=== PATIENT | male | born 1990 | race Caucasian/White ===

== ENCOUNTER 2017-07-17 19:01 | Emergency (ER) | payer OTHER ==
[2017-07-17 20:07] LABS: #Basophils 0.1 thou/uL (0.0-0.2); #Eosinphils 0.1 thou/uL (0.0-0.7); #Lymphocytes 1.6 thou/uL (1.20-3.40); #Monocytes 0.4 thou/uL (0.11-0.59); #Neutrophils 6.8 thou/uL (1.40-6.50); %Basophils 0.7 % (0.0-1.0); %Lymphocytes 18.2 % (21.0-51.0); %Monocytes 4.3 % (0.0-10.0); %Neutrophils 75.7 % (42.0-75.0); Hemoglobin 16.4 g/dL (14.0-18.0); Mean Corpuscular HGB CONC 36.6 g/dL (32.0-36.0); Mean Corpuscular Hemoglobin 32.3 pg (27.0-31.0); Mean Corpuscular Volume 88.3 fl (80.0-94.0); Platelet Count 222 thou/uL (130-400); RBC Distribution Width 12.6 % (11.5-14.5); Red Blood Cell (RBC) Count 5.09 mill/uL (4.70-6.10)
--- NOTE | 2017-07-17 20:09 | RAD ---
SUPINE PORTABLE CHEST: HISTORY: Seizure with fall. FINDINGS: The lungs are clear. No evidence of infiltrate. Deformity of the right clavicle from old fracture i s again noted, unchanged from exam of 12/03/2014. IMPRESSION: No acute chest abnormality identified. POS: [facility]
--- NOTE | 2017-07-17 20:16 | RAD ---
PORTABLE AP PELVIS: INDICATIONS: Seizure with fall. Injury to pelvis. FINDINGS: There is abnormal opacity in the region of the lesser trochanter of the proximal right femur. Some o f this may be extraneous artifact; however, I cannot exclude a fracture at this location. There is also abnormal density involving the ischium, at the acetabulum, on the right. Recommend ded icated right hip views to better evaluate the right hemipelvis and the proximal right femur. CODE T POS: [facility]
--- NOTE | 2017-07-17 20:17 | RAD ---
RIGHT SHOULDER THREE VIEWS: INDICATIONS: Seizure with fall and injury to right shoulder. FINDINGS: Deformity of the right clavicle from old fracture is stable when compared to films dating to 2015. A C joint is normally aligned. Humeral head is normally positioned. No evidence of acute fracture or dislocation. POS: [facility]
[2017-07-17 20:23] LABS: ALT (SGPT) 17 U/L (8-55); AST (SGOT) 15 U/L (5-34); Albumin 4.4 g/dL (3.5-5.0); Alkaline Phosphatase 65 U/L (40-150); Anion Gap 16 mmol/L (10-20); BUN (Urea Nitrogen) 14 mg/dL (8.9-20.6); Bilirubin, Total 0.4 mg/dL (0.2-1.2); Calc. Creatinine Clearance 0 mL/min (70-130); Calcium 9.7 mg/dL (7.8-10.44); Carbamazepine-Tegretol Less than 1.9 ug/mL (4.0-12.0); Carbon Dioxide 22 mmol/L (22-29); Chloride 104 mmol/L (98-107); Estimated GFR-MDRD 86; Globulin 2.6 g/dL (2.4-3.5); Glucose 86 mg/dL (70-105); Potassium 3.2 mmol/L (3.5-5.1); Sodium 139 mmol/L (136-145); Valproic Acid (Depakene) Less than 12.5 ug/mL (50.0-100.0)
--- NOTE | 2017-07-17 21:04 | CT ---
CT HEAD WITHOUT CONTRAST: INDICATIONS: Seizure with fall and injury to head. COMPARISON: Head CT of 10/03/2016. TECHNIQUE: Multiple axial tomograms obtained through the head without IV enhancement. FINDINGS: Post craniotomy changes seen in the right frontal bone and temporal bone. There is volume loss in th e right temporal lobe, consistent with prior craniotomy change. There is also encephalomalacia in th e right frontal lobe, which is stable, possibly the result of prior surgery or infarct. There is volume loss in the left frontal lobe, which appears stable. There is focal volume loss in the left occipital lobe, consistent with old infarct, which is stable. There is no evidence of intracranial hemorrhage. No acute infarct or mass seen. IMPRESSION: Stable findings when compared to prior exam. No acute process. POS: [facility]
--- NOTE | 2017-07-17 21:05 | CT ---
CT CERVICAL SPINE: INDICATIONS: Fall with injury to neck. TECHNIQUE: Multiple axial tomograms obtained through the cervical spine with multiplanar reconstruction. FINDINGS: Cervical vertebrae maintain normal height and alignment. No evidence of fracture identified. IMPRESSION: No evidence of cervical spine fracture. POS: [facility]
[2017-07-17 23:08] LABS: Amphetamine Not Detected (NotDetected); Barbiturates Screen Not Detected (NotDetected); Benzodiazepine Screen Not Detected (NotDetected); Cocaine Metabolite Screen Not Detected (NotDetected); Medtox Control Line Valid? VALID (VALID); Medtox Reader # READER 1; Methadone Not Detected (NotDetected); Methamphetamine Not Detected (NotDetected); Opiate Screen Not Detected (NotDetected); Oxycodone Screen Not Detected (NotDetected); Phencyclidine (PCP) Not Detected (NotDetected); THC/Cannabinoid Screen Not Detected (NotDetected); Tricyclic Screen Not Detected (NotDetected)
== END 2017-07-18 00:09 | disposition home or self-care (01) ==
LOC: ERS 19:01
DX: G40.909 Epilepsy, unspecified, not intractable, without status epilepticus (principal); S00.81XA Abrasion of other part of head, initial encounter; S40.811A Abrasion of right upper arm, initial encounter; F31.9 Bipolar disorder, unspecified; F90.9 Attention-deficit hyperactivity disorder, unspecified type; F17.210 Nicotine dependence, cigarettes, uncomplicated; W19.XXXA Unspecified fall, initial encounter
CPT/HCPCS: 36415; 70450; 71045; 72125; 72170; 80053; 80156; 80164; 80185; 80306; 84146; 85025

== ENCOUNTER 2018-01-06 23:02 | Inpatient (IN) | payer OTHER ==
[2018-01-06 23:42] LABS: #Basophils 0.1 thou/uL (0.0-0.2); #Eosinphils 0.1 thou/uL (0.0-0.7); #Lymphocytes 1.4 thou/uL (1.20-3.40); #Monocytes 0.5 thou/uL (0.11-0.59); #Neutrophils 6.2 thou/uL (1.40-6.50); %Basophils 1.1 % (0.0-1.0); %Eosinophils 0.9 % (0.0-10.0); %Monocytes 5.5 % (0.0-10.0); %Neutrophils 75.5 % (42.0-75.0); Hemoglobin 16.1 g/dL (14.0-18.0); Mean Corpuscular Hemoglobin 31.5 pg (27.0-31.0); Mean Corpuscular Volume 87.4 fL (78.0-98.0); Mean Platelet Volume 6.5 fL (7.4-10.4); Platelet Count 255 thou/uL (130-400); RBC Distribution Width 11.5 % (11.5-14.5); Red Blood Cell (RBC) Count 5.12 mill/uL (4.70-6.10); White Blood Cell (WBC) Count 8.2 thou/uL (4.8-10.8)
[2018-01-06] MEDS ORDERED: Lorazepam 2 MG/ML VIAL ONE (23:42)
[2018-01-06 23:59] LABS: Carbamazepine-Tegretol Less than 1.9 ug/mL (4.0-12.0)
--- NOTE | 2018-01-06 23:59 | CT ---
CT OF THE BRAIN WITHOUT CONTRAST 01/06/18 COMPARISON: 8 HISTORY: Seizure at home. Altered mental status. TECHNIQUE: Multiple contiguous axial images were obtained in a CT of the brain without contrast. FINDINGS: There is stable areas of encephalomalacia in the bilateral frontal lobe and left occipital lobe. Ther e no evidence of hydrocephalus, intracranial hemorrhage or extra-axial fluid collection. Postsurgical changes are seen in the right frontal calvarium. The paranasal sinuses and mastoid air c ells are well aerated. IMPRESSION: Chronic intracranial findings without acute intracranial abnormality. POS: [facility]
[2018-01-07] LABS: ALT (SGPT) 14 U/L (8-55); AST (SGOT) 16 U/L (5-34); Acetaminophen Less than 6.0 mcg/mL (10.0-30.0); Alcohol Less than 10 mg/dL (Less than 10); Alkaline Phosphatase 57 U/L (40-150); Anion Gap 16 mmol/L (10-20); BUN (Urea Nitrogen) 7 mg/dL (8.9-20.6); Bilirubin, Total 0.3 mg/dL (0.2-1.2); CK (CPK) 233 U/L (30-200); Calc. Creatinine Clearance 0 mL/min (70-130); Calcium 8.9 mg/dL (7.8-10.44); Carbon Dioxide 17 mmol/L (22-29); Chloride 94 mmol/L (98-107); Estimated GFR-MDRD Greater than 90; Globulin 2.4 g/dL (2.4-3.5); Glucose 104 mg/dL (70-105); Potassium 3.4 mmol/L (3.5-5.1); Protein, Total 6.4 g/dL (6.0-8.3); Salicylate Less than 8.0 mg/dL (15.0-30.0); Sodium 124 mmol/L (136-145)
--- NOTE | 2018-01-07 00:01 | RAD ---
SINGLE VIEW OF THE CHEST: 01/06/18 COMPARISON: None. HISTORY: Seizures. Nausea and vomiting. FINDINGS: Single view of the chest shows a normal sized cardiomediastinal silhouette. There is no evidence of c onsolidation, mass, or pleural effusion. The bones are unremarkable. IMPRESSION: No evidence of acute cardiopulmonary disease. POS: [facility]
[2018-01-07 00:19] LABS: CKMB 3.8 ng/mL (0-6.6); Troponin I Less than 0.010 ng/mL (< 0.028)
--- NOTE | 2018-01-07 00:41 | PDOC.FPRHP ---
- History of Present Illness Chief Complaint: Seizure History of Present Illness: Patient brought to ED after having a seizure while sleeping at home. History obtained from mother and step-father. Pt has history of seizures for past 4 years after TBI. Seizure lasted ~10 min, associated with bladder incontinence, some "milky, blood mucus" vomit. Typical seizure is when eyes roll back, face turns blue. This seizure was similar in quality but longer in duration compared to normal (2-3 min). Mother reports he stopped breathing and she started chest compressions. Patient was post ictal, but when he recovered became agitated and was given ativan in ED. Patient somnolent at time of exam. Pt drinks 2-3 bottles water/day. Did not miss any doses of medications. Seizures occur every few weeks-couple months. Dr. Murillo is neurologist. ED Course: ativan - Allergies/Adverse Reactions Allergies Allergy/AdvReac Type Severity Reaction Status Date / Time No Known Allergies Allergy Verified 01/07/18 01:44 - Home Medications Medication Instructions Recorded Confirmed Type FLUoxetine HCl 10 mg PO DAILY 10/03/16 01/07/18 History Lacosamide [Vimpat] 200 mg PO BID 10/03/16 01/07/18 History Pravastatin Sodium 40 mg PO HS 10/03/16 01/07/18 History QUEtiapine Fumarate [Seroquel Xr] 300 mg PO HS 10/03/16 10/03/16 History Acetaminophen [Tylenol Regular 650 mg PO Q4H PRN tab 10/05/16 Rx Strength] Atorvastatin Calcium [Lipitor] 10 mg PO HS tab 10/05/16 Rx Docusate [Colace] 100 mg PO BID cap 10/05/16 Rx Famotidine [Pepcid] 20 mg PO BID tab 10/05/16 Rx Ondansetron [Zofran ODT] 4 mg PO Q6H PRN tab 10/05/16 Rx Triamterene/Hydrochlorothiazid 1 cap PO DAILY cap 10/05/16 01/07/18 Rx [Dyazide] Acetaminophen W/ Codeine 1 tab PO Q6H PRN 01/07/18 History [Acetaminophen/Codeine #3] OXcarbazepine [Trileptal] 150 mg PO BID 01/07/18 01/07/18 History lamoTRIgine 25 mg PO BID 01/07/18 01/07/18 History - History PMHx: TBI 4 years ago, in coma 1 month, Stroke with residual L sided weakness, schizoprenia PSHx: previous trach, brain surgery FHx: None Social: Lives iwth mom and stepdad. Smoked 5 cigs daily. No alcohol or drug use. - Review of Systems ROS unobtainable: due to mental status - Vital signs BP: 118/98 HR: 93 RR: 18 Tmax: 98.2 Pox: 100% on RA Wt: 102 kg - Physical Exam Constitutional: other (sleeping, responds to stimuli, follows commands) HEENT: normocephalic and atraumatic, grossly normal hearing Neck: other (scar from previous trach) Heart: RRR, normal S1/S2, no murmurs/rubs/gallops Lungs: CTAB, no respiratory distress Abdomen: soft, bowel sounds present, no masses/distention Musculoskeletal: normal structure, normal tone Neurological: no focal deficit Skin: no rash/lesions, capillary refill <2 seconds FMR H&P: Results - Labs Result Diagrams: 01/06/18 23:29 01/07/18 08:33 Lab results: WBC 8.2 thou/uL (4.8-10.8) 01/06/18 23:29 Hgb 16.1 g/dL (14.0-18.0) 01/06/18 23:29 Hct 44.7 % (42.0-52.0) 01/06/18 23:29 MCV 87.4 fL (78.0-98.0) 01/06/18 23:29 Plt Count 255 thou/uL (130-400) 01/06/18 23:29 Neutrophils % 75.5 % (42.0-75.0) H 01/06/18 23:29 Sodium 124 mmol/L (136-145) L 01/06/18 23:29 Potassium 3.4 mmol/L (3.5-5.1) L 01/06/18 23:29 Chloride 94 mmol/L (98-107) L 01/06/18 23:29 Carbon Dioxide 17 mmol/L (22-29) L 01/06/18 23:29 BUN 7 mg/dL (8.9-20.6) L 01/06/18 23:29 Creatinine 0.86 mg/dL (0.6-1.3) 01/06/18 23:29 Glucose 104 mg/dL (70-105) 01/06/18 23:29 Calcium 8.9 mg/dL (7.8-10.44) 01/06/18 23:29 Total Bilirubin 0.3 mg/dL (0.2-1.2) 01/06/18 23:29 AST 16 U/L (5-34) 01/06/18 23:29 ALT 14 U/L (8-55) 01/06/18 23:29 Alkaline Phosphatase 57 U/L (40-150) 01/06/18 23:29 Creatine Kinase 233 U/L (30-200) H 01/06/18 23:29 CK-MB (CK-2) 3.8 ng/mL (0-6.6) 01/06/18 23:29 Serum Total Protein 6.4 g/dL (6.0-8.3) 01/06/18 23:29 Albumin 4.0 g/dL (3.5-5.0) 01/06/18 23:29 Lipase 25 U/L (8-78) 01/06/18 23:29 FMR H&P: A/P - Problem List (1) Hyponatremia Current Visit: Yes Status: Acute Code(s): E87.1 - HYPO-OSMOLALITY AND HYPONATREMIA (2) Seizure Current Visit: Yes Status: Acute Code(s): R56.9 - UNSPECIFIED CONVULSIONS (3) Elevated CK Current Visit: Yes Status: Acute (4) Schizophrenia Current Visit: Yes Status: Chronic Code(s): F20.9 - SCHIZOPHRENIA, UNSPECIFIED (5) TBI (traumatic brain injury) Current Visit: Yes Status: Chronic Code(s): S06.9X9A - UNSP INTRACRANIAL INJURY W LOC OF UNSP DURATION, INIT - Plan 27 yo M with PMH TBI and seizures admitted after seizure for hyponatremia Hypotonic Hyponatremia - Na+ 124 on admission - Follow BMP q6h, goal to increase Na+ no more than 8 in 24 hrs - ddx includes medication (oxcarbazapine) induced vs SIADH vs polydipsia vs cerebral salt wasting - pending urine sodium, Uosm, uric acid, cortisol, TSH to further delineate between these. Patient appears euvolemic. - s/p 1L NS in ED - Currently NPO, after passing bedside swallow will start fluid restriction Seizure - oxcarbazapine supratherapeutic. Per pharmacy recs, plan to hold for 24 hrs after last dose then will at that time will recheck level or restart med pending clinical course - Consult neurology in am as this seizure was longer than usual for pt - continue home meds pending med rec in am - seizure precautions, neuro checks - drug screen negative - Brain CT: no acute intracranial abnormalities, chronic changes Elevated CK - 256, 2/2 to above Hx of schizoprenia - will continue home meds pending med rec Diet: NPO, will transition to regular diet after bedside swallow DVT Ppx: SCDs Dispo: admit to telemetry FMR H&P: Upper Level - Pertinent history 27 y/o M w/ PMHx of traumatic brain injury w/ seizure d/o seen by Dr. Murillo of neurology presents to the ER for evaluation of seizure which occured earlier tonight. Mother, who is MPOA, reports patient experiencing his usual generalized tonic seizure earlier tonight while asleep. Reports seizure lasted 10 minutes which is longer than his usual 2-3 min. seizure duration. Also, reports seizures do not normally happen when patient asleep. Denies any tongue biting, hitting head. Pt combative during post-ictal state and received ativan in the ER which calmed him down for imaging. Pt started on lamictal by Dr. Paulino approx 1 month ago per mother, but patient has otherwise been on his usual medication regimen. No other changes noted. Mother reports patient does drink a 3-4 16 oz bottles of water a day. Has not had issues with his sodium in the past. - Pertinent findings Na - 124 Serum Osm - 256 Urine Osm - 443 Urine Na - 142 Imaging and vitals per landscape maintenance internship note GEN: Resting in bed, NAD. HEENT: Normocephalic, atraumatic PULM: CTA-B/l CARDS: RRR, no murmur GI: Soft, non-ttp, BSx4 Neuro: Patient follows commands intermittently. Very sleepy after ativan administration. - Plan Date/Time: 01/07/18 0041 Samson Hendrickson MD, have evaluated this patient and agree with findings/plan as outlined by landscape maintenance internship resident. Pertinent changes/additions are listed here. 27 y/o M w/: 1) Moderate Hyponatremia (SIADH vs Cerebral Salt Wasting vs Glucocorticoid Deficiency vs medication induced) - Pt w/ hx of traumatic brain injury now w/ hyponatremia and significantly elevated urine Na and Osm - Will check uric acid to further help differentiate etiology w/ low serum uric acid pointing more toward SIADH - Patient to be fluid restricted as currently does not show evidence of being volume down which points more toward possible SIADH instead of CAMPAIGN MANAGER. No evidence of SAH noted on neuroimaging - Will check q4-6 hr BMP's to monitor sodium w/ goal sodium rise of 8 mEq or less over 24 hours - Will check AM cortisol and TSH to eval for possible glucocorticoid deficiency or severe hypothyroidism as causes - Trileptal is another possible cause of his low Na being supratherapuetic at 51. Will hold his AM dose tomorrow and repeat a level at trough immediately before his night-time dose. Pt already being fluid restricted for likely SIADH. - Will consider consulting nephrology if etiology is still unclear or patient not improving w/ these measures 2) Seizure d/o w/ supratherapeutic oxcarbazepine level - Will continue w/ current home anti-seizure med regimen and plan to consult neuro in the AM for futher eval 2/2 prolonged duration of seizure and supratherapeutic oxcarbazepine level - Will hold his AM dose tomorrow and repeat a level at trough immediately before his night-time dose. - Neuro checks q4 hours - Seizure precautions - No acute findings on neuro-imaging Admit: Tele/Inpt Ppx: Lovenox Code Status: Full code on discussion w/ MPOA Assessment and Plan discussed w/ Dr. Stevenson who is in agreement Attending Addendum - Attending Addendum Date/Time: 01/07/18705 I personally evaluated the patient and discussed the management with Dr. Vallejo. I agree with the History, Examination, Assessment and Plan documented above with any addition or exceptions noted below. The patient was admitted overnight and is in the imcu as tele overflow, not IMCU. He had a seizure at home that lasted longer than normal. He was found to be hyponatremic. Hyponatremia could be due to siadh or medication induced. Checking urine studies. Sodium is slowly improving with fluid restriction. Will likely also discuss with pt's neurologist Dr. Murillo on Monday regarding his seizure meds.
[2018-01-07 00:44] LABS: Amphetamine Not Detected (NotDetected); Barbiturates Screen Not Detected (NotDetected); Benzodiazepine Screen Not Detected (NotDetected); Cocaine Metabolite Screen Not Detected (NotDetected); Medtox Control Line Valid? VALID (VALID); Medtox Reader # READER 4; Methadone Not Detected (NotDetected); Methamphetamine Not Detected (NotDetected); Opiate Screen Not Detected (NotDetected); Oxycodone Screen Not Detected (NotDetected); Phencyclidine (PCP) Not Detected (NotDetected); THC/Cannabinoid Screen Not Detected (NotDetected); Tricyclic Screen Not Detected (NotDetected)
[2018-01-07 00:59] LABS: Osmolality, Urine 443 mOsm/kg (300-900); Sodium, Urine 142 mmol/L (Not Available)
[2018-01-07 01:50] VITALS: BMI 29.7
[2018-01-07] MEDS ORDERED: Ondansetron ODT 4 MG TAB PO PRN (02:29)
[2018-01-07] MEDS ORDERED: Lorazepam 2 MG/ML VIAL SLOW IVP PRN (02:29)
[2018-01-07 04:54] LABS: Anion Gap 11 mmol/L (10-20); BUN (Urea Nitrogen) 6 mg/dL (8.9-20.6); Calc. Creatinine Clearance 213 mL/min (70-130); Calcium 8.7 mg/dL (7.8-10.44); Carbon Dioxide 20 mmol/L (22-29); Chloride 100 mmol/L (98-107); Estimated GFR-MDRD Greater than 90; Glucose 93 mg/dL (70-105); Potassium 3.7 mmol/L (3.5-5.1); Sodium 127 mmol/L (136-145)
[2018-01-07] MEDS: Nicotine 21 MG PATCH TD SCH (06:20)
[2018-01-07 09:23] LABS: Anion Gap 12 mmol/L (10-20); BUN (Urea Nitrogen) 6 mg/dL (8.9-20.6); Calc. Creatinine Clearance 194 mL/min (70-130); Calcium 9.3 mg/dL (7.8-10.44); Carbon Dioxide 22 mmol/L (22-29); Chloride 105 mmol/L (98-107); Estimated GFR-MDRD Greater than 90; Glucose 91 mg/dL (70-105); Potassium 4.3 mmol/L (3.5-5.1); Sodium 135 mmol/L (136-145)
[2018-01-07] MEDS: OXcarbazepine 150 MG TAB PO SCH ×2 (09:40→20:25)
[2018-01-07] MEDS: lamoTRIgine 25 MG TAB PO SCH ×2 (09:41→20:25)
[2018-01-07] MEDS: Lacosamide 50 mg Tablet PO SCH ×2 (10:51→20:25)
[2018-01-07 16:45] LABS: Anion Gap 11 mmol/L (10-20); BUN (Urea Nitrogen) 7 mg/dL (8.9-20.6); Calc. Creatinine Clearance 162 mL/min (70-130); Calcium 9.4 mg/dL (7.8-10.44); Carbon Dioxide 20 mmol/L (22-29); Chloride 108 mmol/L (98-107); Estimated GFR-MDRD Greater than 90; Glucose 116 mg/dL (70-105); Potassium 4.2 mmol/L (3.5-5.1); Sodium 135 mmol/L (136-145)
[2018-01-07] MEDS: Acetaminophen 325 MG TAB PO PRN (17:15)
[2018-01-07] MEDS ORDERED: OXcarbazepine 150 MG TAB PO SCH (21:00)
[2018-01-07] MEDS ORDERED: Pravastatin Sodium 40 MG TAB PO SCH (21:00)
[2018-01-07 22:27] LABS: Anion Gap 13 mmol/L (10-20); BUN (Urea Nitrogen) 8 mg/dL (8.9-20.6); Calc. Creatinine Clearance 171 mL/min (70-130); Calcium 9.5 mg/dL (7.8-10.44); Carbon Dioxide 23 mmol/L (22-29); Chloride 107 mmol/L (98-107); Estimated GFR-MDRD Greater than 90; Glucose 90 mg/dL (70-105); Potassium 3.8 mmol/L (3.5-5.1); Sodium 139 mmol/L (136-145)
--- NOTE | 2018-01-08 05:23 | PDOC.FM ---
- Subjective Subjective: Pt is doing well this morning. He reports right sided upper extremity weakness but states that happens every morning. He denies headache, shortness of breath, or chest pain. - Objective MAR Reviewed: Yes Vital Signs & Weight: Vital Signs (12 hours) Temp Pulse Resp BP Pulse Ox 01/08/18 03:45 97.8 F 67 20 101/51 L 98 01/08/18 00:00 97.8 F 90 18 93/61 98 01/07/18 19:36 97.9 F 89 20 123/68 97 Weight Weight 102.058 kg I&O: 01/06/18 01/07/18 01/08/18 06:59 06:59 06:59 Intake Total 1680 Output Total 8159 6086 Balance -5150 -9170 Result Diagrams: 01/06/18 23:29 01/08/18 04:49 Phys Exam - Physical Examination Constitutional: NAD HEENT: moist MMs Neck: no JVD Respiratory: no wheezing, clear to auscultation bilateral Cardiovascular: RRR, no significant murmur Gastrointestinal: soft, non-tender, no distention, positive bowel sounds Musculoskeletal: no edema, pulses present Neurological: non-focal, normal sensation, moves all 4 limbs Pt. has equal strength in upper and lower extermities Psychiatric: normal affect, A&O x 3 Skin: cap refill <2 seconds Dx/Plan (1) Hyponatremia Code(s): E87.1 - HYPO-OSMOLALITY AND HYPONATREMIA Status: Acute (2) Seizure Code(s): R56.9 - UNSPECIFIED CONVULSIONS Status: Acute (3) Schizophrenia Code(s): F20.9 - SCHIZOPHRENIA, UNSPECIFIED Status: Chronic (4) TBI (traumatic brain injury) Code(s): S06.9X9A - UNSP INTRACRANIAL INJURY W LOC OF UNSP DURATION, INIT Status: Chronic - Plan Plan: This is a 27 yo male with a PMH of seizures 2/2 TBI Hypotonic Hyponatremia -Na124 on admission, currently 139 -Sodium has only been corrected with fluid restriction at this point (1500 ml/ day) -Urine sodium and Urine osm, uric acid, cortisol, and TSH point away from SIADH. Likely 2/2 medication (oxcarbazapine) and the diuretic he has been taking for his BP/fluid retention (triamterene) -We will continue monitoring pt electrolytes and mental status Seizure -Oxcarbazepine supratherapeutic. Pending level as it is a send out -We are consulting neurology this morning -Yesterday I discussed medications with mother and reconciled his medications -Brain CT negative for acute abnormalities -Drug screen was negative -Pt passed bedside swallow and was started on regular diet Elevated CK -256 initially, trending down Hx of schizophrenia -Continue home meds
[2018-01-08 05:57] LABS: Anion Gap 14 mmol/L (10-20); BUN (Urea Nitrogen) 9 mg/dL (8.9-20.6); Calc. Creatinine Clearance 161 mL/min (70-130); Calcium 9.8 mg/dL (7.8-10.44); Carbon Dioxide 21 mmol/L (22-29); Chloride 108 mmol/L (98-107); Estimated GFR-MDRD 90; Glucose 83 mg/dL (70-105); Potassium 4.4 mmol/L (3.5-5.1); Sodium 139 mmol/L (136-145)
[2018-01-08] MEDS: Acetaminophen 325 MG TAB PO PRN (06:15)
[2018-01-08] MEDS: Nicotine 21 MG PATCH TD SCH (06:16)
[2018-01-08] MEDS: lamoTRIgine 25 MG TAB PO SCH (08:13)
[2018-01-08] MEDS: OXcarbazepine 150 MG TAB PO SCH (08:13)
[2018-01-08] MEDS: Lacosamide 50 mg Tablet PO SCH (08:56)
[2018-01-08] MEDS ORDERED: FLUoxetine HCl 10 MG CAP PO SCH ×2 (09:00)
[2018-01-08 15:49] VITALS: BP 115/79; TEMP 97.8
[2018-01-08] MEDS ORDERED: lamoTRIgine 100 MG TAB PO SCH (21:00)
--- NOTE | 2018-01-10 07:31 | DIS ---
DATE OF ADMISSION: 01/07/2018 DATE OF DISCHARGE: 01/08/2018 RESIDENT: Cristobal Santillan DO. ADMITTING ATTENDING: Roselyn Stevenson MD. DISCHARGE ATTENDING: Philippe Alvarez MD. CONSULTS: Neurology, Dr. Sushant Murillo. PROCEDURES PERFORMED: 1. Chest x-ray, no evidence of acute cardiopulmonary disease. 2. CT of brain without contrast, chronic intracranial findings without acute intracranial abnormalities. PRIMARY DIAGNOSIS: Seizure disorder secondary to TBI 3 years ago. SECONDARY DIAGNOSES: 1. Hypertension. 2. Schizophrenia. DISCHARGE MEDICATIONS: 1. Tylenol 650 q.4 hours p.r.n. 2. Tylenol 3 one tablet p.o. q.6 hours p.r.n. 3. Atorvastatin p.o. nightly. 4. Colace 100 mg p.o. b.i.d. 5. Pepcid 20 mg p.o. b.i.d. 6. Fluoxetine 10 mg p.o. daily. 7. Lacosamide 200 p.o. b.i.d. 8. Lamictal 300 mg p.o. b.i.d. 9. Zofran 4 mg p.o. q.6 hours. 10. Pravastatin 40 mg p.o. nightly. 11. Quetiapine 300 mg p.o. nightly. DISCONTINUED MEDICATIONS: Lamotrigine 25 mg b.i.d. BRIEF HOSPITAL COURSE/HISTORY OF PRESENT ILLNESS: This is a 27-year-old male, who presented to the ER after 10-minute seizure with apnea and milky and bloody mucus with vomit. The patient reports he did not miss any of his medications. Upon admission, the patient was given Ativan when he was no longer epileptic . The patient was stable during the time of hospital stay. Mother was aware and treatment plan was discussed with her while she was here. Neurology was consulted and the medications were changed slightly. DISPOSITION: Stable. DISCHARGE INSTRUCTIONS: 1. Location: Home. 2. Diet: As tolerated. 3. Activities: As tolerated. 4. Followup: With Dr. Murillo in 1 to 2 weeks and with primary care physician in 1 to 2 weeks. Job ID: [id number]
== END 2018-01-08 18:12 | disposition home or self-care (01) | DRG 101 ==
LOC: ERS 23:02 → IMCU/EMU 01-07 00:36
PROVIDERS: ADMIT Family Medicine; ATTEND Family Medicine
DX: G40.909 Epilepsy, unspecified, not intractable, without status epilepticus (principal); E22.2 Syndrome of inappropriate secretion of antidiuretic hormone; F20.9 Schizophrenia, unspecified; E03.9 Hypothyroidism, unspecified; I10 Essential (primary) hypertension; S06.890S Other specified intracranial injury without loss of consciousness, sequela; X58.XXXS Exposure to other specified factors, sequela
CPT/HCPCS: 36415; 70450; 71045; 80048; 80053; 80156; 80183; 80306; 80307; 82533; 82550; 82553; 83690; 83935; 84300; 84443; 84484; 84550; 85025; 93005; 96361; 96374; J2060

== ENCOUNTER 2018-03-13 07:01 | Day surgery (SDC) | payer OTHER ==
[2018-03-12 15:17] VITALS: BMI 23.7
--- NOTE | 2018-03-13 11:00 | OP ---
DATE OF PROCEDURE: 03/13/2018 PROCEDURE PERFORMED: Esophagogastroduodenoscopy with biopsy. INDICATION FOR PROCEDURE: Hematemesis, dysphagia. DESCRIPTION OF PROCEDURE: After the risks and benefits of the procedure were explained to the patient's surrogate (patient's mother) including risks of bleeding, infection, perforation, reactions to anesthesia, aspiration and/or pain, informed consent was obtained. The patient was then taken to the endoscopy suite, where deep sedation was administered via propofol and anesthesia support. Once adequate sedation was achieved, the standard gastroscope was introduced into the mouth with intubation of the esophagus, stomach, and the proximal small intestine with the findings listed below. The patient tolerated the procedure well with no immediate perioperative complications. Upon conclusion of the procedure, all equipment was removed from the patient and he was taken to Day Stay in satisfactory condition. FINDINGS: Esophagus: Normal-appearing mucosa was seen in the proximal, mid, and distal esophagus as well as at the GE junction. Both the diaphragmatic pinch and GE junction were well seen at approximately 40 cm past the incisors. There was no evidence of erosions, ulcerations, mass, lesions, stricture/stenoses, webs, or active/recent bleeding. Random biopsies were taken from the proximal and distal esophagus and placed in separate jars for evaluation of possible eosinophilic esophagitis. There was no evidence of Eloisa esophagitis during this examination. Stomach: Normal-appearing mucosa was seen in the gastric cardia, fundus, body, and incisura, however, two linear erosions were seen at the junction between the gastric body and antrum measuring approximately 1.5 to 2 cm in length and roughly 5 mm in diameter. There was no overt ulceration associated with this, but a slight cratered appearance to the center of the erosion indicating that it may at one point in time been an ulceration that is now healing. Multiple biopsies were taken from these erosions and placed in a specimen jar for evaluation. Otherwise, there was no other additional findings including no evidence of mass, lesions, or active/recent bleeding. Duodenum: Minimally increased mucosal erythema was seen in the duodenal bulb without overt ulceration or associated erosions; however, the second portion of the duodenum appeared normal with no mucosal erythema associated with it. There was no evidence of erosions, ulcerations, mass, lesions, or active/recent bleeding seen in both the bulb and second portion. No biopsies were taken given the presence of erosions in the stomach and more likely etiology seen there. IMPRESSION: 1. Two linear erosions measuring 2 cm x 5 mm with crater centered concerning for healing ulceration, status post biopsies. 2. Mild duodenitis. 3. No etiology for the patient's dysphagia or hematemesis was seen during this examination. RECOMMENDATIONS: 1. We will follow up on the biopsy results with further management based on the pathology read. 2. We will have the patient follow up in the GI clinic in 3 weeks with the PA for further followup of dysphagia/hematemesis. 3. Would avoid any NSAIDs if possible. 4. Would consider swallow study if the biopsies are negative. Job ID: [id number]
[2018-03-13] MEDS ORDERED: PROPOFOL 200 MG/20 ML VIAL ONE (16:37)
[2018-03-13] MEDS ORDERED: ePHEDrine 50 MG/ML VIAL ONE (16:37)
[2018-03-13] MEDS ORDERED: Lidocaine 1% PF 5 ML VIAL ONE (16:37)
== END 2018-03-13 10:55 | disposition home or self-care (01) ==
LOC: SDC 07:01
PROVIDERS: ATTEND Internal Medicine
PROC: 0DB38ZX Excision of Lower Esophagus, Via Natural or Artificial Opening Endoscopic, Diagnostic (ICD-10-PCS; principal; 2018-03-13)
PROC: 0DB18ZX Excision of Upper Esophagus, Via Natural or Artificial Opening Endoscopic, Diagnostic (ICD-10-PCS; principal; 2018-03-13)
PROC: 0DB78ZX Excision of Stomach, Pylorus, Via Natural or Artificial Opening Endoscopic, Diagnostic (ICD-10-PCS; principal; 2018-03-13)
DX: K25.9 Gastric ulcer, unspecified as acute or chronic, without hemorrhage or perforation (principal); K29.80 Duodenitis without bleeding; F90.9 Attention-deficit hyperactivity disorder, unspecified type; F31.9 Bipolar disorder, unspecified; I10 Essential (primary) hypertension; F17.210 Nicotine dependence, cigarettes, uncomplicated; Z87.820 Personal history of traumatic brain injury; Z79.899 Other long term (current) drug therapy
CPT/HCPCS: 88305; 88312; 88313; J2001; J2704; J3490

== ENCOUNTER 2018-07-11 06:46 | Outpatient (CLI) | payer OTHER ==
[2018-07-11] MEDS ORDERED: Gadobenate Dimeglumine 529 MG/1 ML (20ML VIAL) ONE (09:00)
--- NOTE | 2018-07-11 11:12 | MRI ---
BRAIN MRI WITH AND WITHOUT CONTRAST: DATE: 07/11/2018. COMPARISON: None. HISTORY: Seizures, history of traumatic brain injury, prior strokes. TECHNIQUE: Multiplanar, multisequence MR imaging of the brain obtained with and without contrast. FINDINGS: The diffusion weighted imaging demonstrates no evidence for acute infarction. The axial gradient ech o imaging demonstrates multifocal blooming artifact suggesting areas of prior hemorrhage bilaterally including foci of remote micro hemorrhage and posterior parietooccipital lobes bilaterally, right fro ntal lobe, and bilateral temporal regions. In these regions there is encephalomalacia with volume lo ss and extensive subcortical T2 and FLAIR increased signal intensity which includes bilateral tempora l regions, right greater than left, the inferior right frontal region, the superior lateral right fro ntal region, and the occipital region on the left. This suggests a combination of prior infarctions and prior posttraumatic insults, likely including prior areas of contusion. The hippocampus on the r ight appears mildly enlarged and of increased FLAIR signal when compared to the left which could be r elated to recent seizure activity. Clinical correlation is essential. There are areas of ventricula r enlargement on the basis of ex vacuo hydrocephalus, especially involving the temporal horn on the r ight and bilateral frontal horns, right greater than left. The arterial flow voids at the axial level of the skull base appear within normal limits on the T2 we ighted imaging. The imaged paranasal sinuses/mastoid air cells appear well aerated. The postcontrast imaging demonstrates no abnormal enhancement within the brain parenchyma. There is evidence of prior craniotomy in the right temporal and right frontal regions. IMPRESSION: Multifocal areas of encephalomalacia suggesting a combination of prior infarction and/or prior trauma , likely including prior areas of intraaxial contusion. This study demonstrates no evidence for acut e infarction or abnormal enhancement. The hippocampus on the right appears slightly enlarged and of increased signal intensity when compared to the left which may signify edema on the basis of recent s eizure activity. Follow up MRI advised to document resolution. POS: [facility]
== END 2018-07-11 06:47 | disposition home or self-care (01) ==
LOC: SCSMRI 06:46
PROVIDERS: ATTEND Nurse Practitioner Acute Care
DX: G40.909 Epilepsy, unspecified, not intractable, without status epilepticus (principal); G93.89 Other specified disorders of brain
CPT/HCPCS: 70553; A9577

== ENCOUNTER 2018-11-19 18:09 | Emergency (ER) | payer OTHER ==
[2018-11-19 19:55] LABS: #Basophils 0.1 thou/uL (0.0-0.2); #Eosinphils 0.1 thou/uL (0.0-0.7); #Lymphocytes 2.2 thou/uL (1.20-3.40); #Monocytes 0.6 thou/uL (0.11-0.59); #Neutrophils 5.2 thou/uL (1.40-6.50); %Basophils 0.8 % (0.0-1.0); %Eosinophils 1.6 % (0.0-10.0); %Lymphocytes 27.2 % (21.0-51.0); %Monocytes 7.2 % (0.0-10.0); %Neutrophils 63.2 % (42.0-75.0); Hemoglobin 15.7 g/dL (14.0-18.0); Mean Corpuscular HGB CONC 35.6 g/dL (32.0-36.0); Mean Corpuscular Hemoglobin 31.8 pg (27.0-31.0); Mean Corpuscular Volume 89.1 fL (78.0-98.0); Mean Platelet Volume 7.4 fL (7.4-10.4); Platelet Count 204 thou/uL (130-400); RBC Distribution Width 11.7 % (11.5-14.5); Red Blood Cell (RBC) Count 4.94 mill/uL (4.70-6.10); White Blood Cell (WBC) Count 8.2 thou/uL (4.8-10.8)
[2018-11-19 20:03] LABS: Bilirubin Negative (Negative); Blood, Urine Negative (Negative); Clarity Clear (Clear); Glucose, Urine (Dipstick) Normal (Negative); Leukocyte Negative Leu/uL (Negative); Nitrite Negative (Negative); Protein, Urine (Dipstick) Negative (Neg-Trace); Urobilinogen Normal mg/dL (Less than 2)
[2018-11-19 20:15] LABS: Amphetamine Not Detected (NotDetected); Barbiturates Screen Not Detected (NotDetected); Benzodiazepine Screen Not Detected (NotDetected); Cocaine Metabolite Screen Not Detected (NotDetected); Medtox Control Line Valid? VALID (VALID); Medtox Reader # READER 1; Methadone Not Detected (NotDetected); Methamphetamine Not Detected (NotDetected); Opiate Screen Not Detected (NotDetected); Oxycodone Screen Not Detected (NotDetected); Phencyclidine (PCP) Not Detected (NotDetected); THC/Cannabinoid Screen Not Detected (NotDetected); Tricyclic Screen Not Detected (NotDetected)
[2018-11-19 20:16] LABS: ALT (SGPT) 21 U/L (8-55); AST (SGOT) 17 U/L (5-34); Albumin 4.5 g/dL (3.5-5.0); Alcohol Less than 10 mg/dL (Less than 10); Alkaline Phosphatase 54 U/L (40-110); Anion Gap 13 mmol/L (10-20); BUN (Urea Nitrogen) 14 mg/dL (8.9-20.6); Bilirubin, Total 0.4 mg/dL (0.2-1.2); Calc. Creatinine Clearance 0 mL/min (70-130); Calcium 9.3 mg/dL (7.8-10.44); Carbon Dioxide 22 mmol/L (22-29); Chloride 108 mmol/L (98-107); Estimated GFR-MDRD 76; Globulin 2.3 g/dL (2.4-3.5); Glucose 95 mg/dL (70-105); Potassium 3.8 mmol/L (3.5-5.1); Protein, Total 6.8 g/dL (6.0-8.3); Sodium 139 mmol/L (136-145)
== END 2018-11-20 04:59 ==
LOC: ERS 18:09
DX: F32.9 Major depressive disorder, single episode, unspecified (principal); I10 Essential (primary) hypertension; F90.9 Attention-deficit hyperactivity disorder, unspecified type; G40.909 Epilepsy, unspecified, not intractable, without status epilepticus; Z86.73 Personal history of transient ischemic attack (TIA), and cerebral infarction without residual deficits; F17.210 Nicotine dependence, cigarettes, uncomplicated
CPT/HCPCS: 36415; 80053; 80306; 80307; 81003; 85025; 99285